=== PATIENT | female | born 1995 | race Caucasian/White ===

== ENCOUNTER → 2018-05-30 | Outpatient (CLI) | payer MEDICAID ==
--- NOTE | 2018-06-01 00:05 | US ---
EXAMINATION TYPE: US thyroid st tissue head/neck DATE OF EXAM: 05/30/2018 COMPARISON: NONE CLINICAL HISTORY: R59.0 Cervical Lymphadenopathy. Pt has palpable lump left posterior neck near base of skull x 1 month/ states it has decreased in size Probable lymph node at area of pt's palpable= 1.1 x 0.4 x 0.7 cm Benign appearing subcentimeter lymph node with retention of fatty hilum is seen at level of palpable abnormality posterior neck images saved. IMPRESSION:As above
== END | disposition home or self-care (01) ==
LOC: RADUSWWP 16:12
PROVIDERS: ATTEND Family Medicine
DX: R59.0 Localized enlarged lymph nodes (principal)
CPT/HCPCS: 76536

== ENCOUNTER → 2018-07-04 | Outpatient (CLI) | payer OTHER ==
--- NOTE | 2018-07-04 15:47 | US ---
EXAMINATION TYPE: US thyroid st tissue head/neck DATE OF EXAM: 07/04/2018 COMPARISON: US CLINICAL HISTORY: L04.9 LYMPHADENITIS. F/U of previous lymph node. Appears similar today, measures 1.0 x 0.5 x 0.9cm IMPRESSION: Stable appearing subcentimeter lymph node presumed benign. No new suspicious adenopathy identified.
== END | disposition home or self-care (01) ==
LOC: RADUSWWP 15:16
PROVIDERS: ATTEND Nurse Practitioner Adult Health
DX: L04.9 Acute lymphadenitis, unspecified (principal)
CPT/HCPCS: 76536

== ENCOUNTER → 2018-08-27 | Outpatient (CLI) | payer MEDICAID, OTHER ==
--- NOTE | 2018-08-28 04:43 | CT ---
EXAMINATION TYPE: CT soft tissue neck w con DATE OF EXAM: 08/27/2018 COMPARISON: Neck Ultrasound 07/04/2018 HISTORY: 23-year-old female Neck swelling and bilateral masses. TECHNIQUE: Contiguous axial scanning of the soft tissues of the neck performed with IV Contrast, luh ent injected with 100ml mL of Isovue M300. Coronal/sagittal reconstructions performed. CT DLP: 544 mGycm Automated exposure control for dose reduction was used. FINDINGS: Visualized intracranial structures and mastoid air cells appear clear. There is some lobulated mucosa l thickening along the floors of the left greater than right maxillary sinuses. Nasopharynx appears clear. Mild hypertrophy of the lingual tonsils. Oropharynx otherwise appears clear. The epiglottis and prevertebral soft tissues appear normal. The glottic and subglottic structures as well as the tracheal column and visualized upper lungs are c lear. Thyroid gland appears normal. Submandibular glands are satisfactory. The parotid glands are mildly atrophic. Borderline sized 5 mm left parotid space lymph node. There are scattered borderline enlarged lymph no tiago throughout the upper neck. -Along the posterior upper cervical region on the left, lymph node measures up to 9 mm short axis. Th ere is an overlying palpable marker. -Station 2 lymph nodes measure up to 9 mm short axis, coronal image 41. -Palpable markers are present on both sides just below the level of the submandibular regions where l ymph nodes measure up to 9 mm, axial image 29 on the right and 7 mm on the left. No suspicious neck masses seen. No osseous destructive process. IMPRESSION: SCATTERED PROMINENT BUT NONENLARGED LYMPH NODES MEASURING UP TO 9 MM. THERE ARE 3 PALPABLE MARKERS VA ESENT, ALONG THE LEFT POSTERIOR UPPER CERVICAL REGION AND BELOW THE BILATERAL SUBMANDIBULAR REGIONS W HERE LYMPH NODES MEASURE UP TO 9 MM SHORT AXIS. NO SUSPICIOUS NECK MASS SEEN. THESE LYMPH NODES ARE N ONSPECIFIC BUT PROBABLY REACTIVE/POST INFLAMMATORY AND CAN BE FOLLOWED CLINICALLY.
== END | disposition home or self-care (01) ==
LOC: RADCTMAIN 16:59
PROVIDERS: ATTEND Otolaryngology
DX: R22.1 Localized swelling, mass and lump, neck (principal)
CPT/HCPCS: 70491; Q9967

== ENCOUNTER → 2018-09-26 | Outpatient (CLI) | payer OTHER ==
--- NOTE | 2018-09-26 08:17 | USB ---
Reason for exam: clinical finding. History: Family history of breast cancer in maternal grandmother. Physical Findings: Nurse Summary: Patient complains of new left breast dimpling lower quadrant x 2 weeks, left greaster than right breast, left upper outer quadrant asymmetrical thickening (nurse mj). US Breast BILAT Right complete breast ultrasound includes all four quadrants, the retroareolar region and axilla. Finding demonstrates no cystic or solid lesion seen. Left complete breast ultrasound includes all four quadrants, the retroareolar region and axilla. Finding demonstrates no cystic or solid lesion seen. No sonographic corrleate to the patient's complaint. These results were verbally communicated with the patient and result sheet given to the patient on 09/26/18. ASSESSMENT: Negative, BI-RAD 1 RECOMMENDATION: Routine screening mammogram of both breasts at age 41. (or sooner if clinically indicated) Manage patient on a clinical basis.
== END | disposition home or self-care (01) ==
LOC: RADUSWWP 07:17
PROVIDERS: ATTEND Obstetrics & Gynecology
DX: N63.0 Unspecified lump in unspecified breast (principal)

== ENCOUNTER → 2018-10-03 | Outpatient (CLI) | payer OTHER ==
[2018-10-03 15:52] VITALS: BP 143/90; PULSE 104; RESP 18; TEMP 98.1
--- NOTE | 2018-10-03 16:30 | P.GSHP ---
History of Present Illness H&P Date: 10/03/18 Chief Complaint: dimple under left nipple Stevenson is a 23-year-old white female who states that since 09/13/2018 she noticed it 2 areas of dimpling in her left breast after showering. Is not noted any lumps or masses. She does have a family history of cancer in the grandmother had breast cancer and her mother had some concerns following a mammogram in her own breast. The patient therefore wants to assure that everything is okay. She had bilateral breast ultrasounds performed on 2018. No cystic or solid lesions of concern were noted. The patient does not have any pain in her breast. She has no nipple discharge or skin changes. The patient does not drink much caffeine, maybe one can of pop a week. The patient doesn't eat chocolate often, the patient does not smoke. She is not exposed to secondhand smoke. The patient does take control pills. The patient states that her breasts feel encouraged and slightly tender prior to her periods. The patient states she first noted the dimpling of week at after her period ended, and she has not had another. Since that time. Family history: 1. maternal grandmother: breast cancer early 40's Hormonal History: menarche: 15 : none, BCP-3 years periods: regular BCP: 3 years Past surgical history: 1. Tonsillectomy Past medical history: Negative Social history: Smoke: negative alcohol: Negative Drugs: Negative - Constitutional Constitutional: Denies chills, Denies fever - EENT Eyes: denies blurred vision, denies pain Ears: deny: decreased hearing, tinnitus Ears, nose, mouth and throat: Denies headache, Denies sore throat - Breasts Breasts: bilateral: as per HPI - Cardiovascular Cardiovascular: Denies chest pain, Denies shortness of breath - Respiratory Comment: asthma Respiratory: Denies cough, Denies 7 - Gastrointestinal Gastrointestinal: Denies abdominal pain, Denies diarrhea, Denies nausea, Denies vomiting - Genitourinary (Female) Genitourinary: Denies dysuria, Denies hematuria - Menstruation Menstruation: Reports period normal - Musculoskeletal Musculoskeletal: Denies myalgias - Integumentary Integumentary: Denies pruritus, Denies rash - Neurological Neurological: Denies numbness, Denies weakness - Psychiatric Psychiatric: Denies anxiety, Denies depression - Hematologic/Lymphatic Comment: none - Allergic/Immunologic Allergic/Immunologic: Reports seasonal allergies Past Medical History Past Medical History: Asthma, GERD/Reflux History of Any Multi-Drug Resistant Organisms: None Reported Past Surgical History: Tonsillectomy Smoking Status: Never smoker - Past Family History Mother Additional Family Medical History / Comment(s): MOTHER ENDOMETRIOSIS. MATERNAL GRANDMOTHER BREAST CANCER EARLY 40'S Medications and Allergies Home Medications Medication Instructions Recorded Confirmed Type Norgestimate-Ethinyl Estradiol 1 each PO HS 10/03/18 10/03/18 History [Ortho Tri-Cyclen 28 Tablet] Allergies Allergy/AdvReac Type Severity Reaction Status Date / Time codeine AdvReac Nausea & Unverified 10/03/18 15:40 Vomiting Surgical - Exam Vital Signs Temp Pulse Resp BP Pulse Ox 98.1 F 104 H 18 143/90 99 10/03/18 15:41 10/03/18 15:41 10/03/18 15:41 10/03/18 15:41 10/03/18 15:41 BMI 31.5 - General well developed, well nourished, no distress - Eyes normal ocular movement - ENT no hearing loss, no congestion - Neck no masses, trachea midline - Respiratory normal respiratory effort, clear to auscultation - Cardiovascular Rhythm: regular - Abdomen Abdomen: soft, non tender, no guarding, no rigid, no rebound - Integumentary Several nevi of concern two on her left upper back near her bra line, and one in her left posterior arm multiple other nevi present - Neurologic no disoriented, no combative - Musculoskeletal normal gait, normal posture - Psychiatric oriented to time, oriented to person, oriented to place, speech is normal, memory intact Breast examination: Right breast: Multi-positional exam no dominant masses or nodules of concern, very dense fibrocystic breast Right axilla: No adenopathy of concern Left breast: Multi-positional exam per dominant masses or nodules of concern, dense fibrocystic breast changes Left axilla: No adenopathy of concern Results Bilateral breast ultrasound from September 2018 reviewed Assessment and Plan Assessment: Impression: 1. Dense fibrocystic breast changes 2. No radiographic or physical exam evidence of malignancy 3. Bilateral breast ultrasound with no radiographic abnormalities 4. Family history of breast cancer 5. Skin nevi of concern two left back and left upper arm Plan: 1. Monthly breast self exam 2. Patient should call immediately if she has is anything of concern 3. Follow with Dr. Jamshid Sanders consultation for nevi on back and left upper arm and would recommend full body check patient understands this CC: Jamshid Sanders, Dr. Weiss
== END | disposition home or self-care (01) ==
LOC: WWCWWP 14:39
PROVIDERS: ATTEND Surgery

== ENCOUNTER → 2018-11-04 | Outpatient (CLI) | payer OTHER ==
--- NOTE | 2018-11-05 09:14 | US ---
EXAMINATION TYPE: US mass soft tissue chest/back DATE OF EXAM: 11/04/2018 COMPARISON: NONE CLINICAL HISTORY: R22.2 Mass Chest Wall. Palpable area patient's sternum No abnormality visualized at the patient's palpable. IMPRESSION: Negative
== END | disposition home or self-care (01) ==
LOC: RADUSWWP 16:18
PROVIDERS: ATTEND Family Medicine
DX: R22.2 Localized swelling, mass and lump, trunk (principal)

== ENCOUNTER → 2018-12-17 | Outpatient (CLI) | payer OTHER ==
--- NOTE | 2018-12-18 10:19 | ECHOF ---
Referral Reason:R07.9 chest pain MEASUREMENTS -------- HEIGHT: 170.2 cm WEIGHT: 90.7 kg BP: IVSd: 0.9 cm (0.6 - 1.1) LVIDd: 5.1 cm (3.9 - 5.3) LVPWd: 1.0 cm (0.6 - 1.1) IVSs: 1.3 cm LVIDs: 3.2 cm LVPWs: 1.5 cm LA Diam: 3.2 cm (2.7 - 3.8) RVIDd: 3.2 cm (< 3.3) Ao Diam: 2.8 cm (2.0 - 3.7) LA Diam: 3.4 cm (2.7 - 3.8) AV Cusp: 2.2 cm (1.5 - 2.6) EPSS: 0.3 cm MV E Abhi: 1.25 m/s MV DecT: 191 ms MV A Abhi: 0.84 m/s MV E/A Ratio: 1.48 RAP: 5.00 mmHg RVSP: 14.05 mmHg MV EF SLOPE: 123.72 mm/s (70 - 150) MV EXCURSION: 1.96 cm (> 18.000) FINDINGS -------- Sinus rhythm. This was a technically adequate study. LV size, wall thickness and systolic function are normal, with an EF greater than 55%. The left bigg tricular size is normal. The right ventricle is normal in size and function. The left atrial size is normal. The right atrial size is normal. Interatrial and interventricular septum intact. The aortic valve is trileaflet, and appears structurally normal. No aortic stenosis or regurgitation. There is trace mitral regurgitation. Trace tricuspid regurgitation present. There is no evidence of pulmonary hypertension. The right ventricular systolic pressure, as measured by Doppler, is 14.05mmHg. There is no pulmonic regurgitation present. The aortic root size is normal. There is no pericardial effusion. CONCLUSIONS -------- 1. Sinus rhythm. 2. This was a technically adequate study. 3. LV size, wall thickness and systolic function are normal, with an EF greater than 55%. 4. The left ventricular size is normal. 5. The right ventricle is normal in size and function. 6. The left atrial size is normal. 7. The right atrial size is normal. 8. Interatrial and interventricular septum intact. 9. The aortic valve is trileaflet, and appears structurally normal. No aortic stenosis or regurgitati on. 10. There is trace mitral regurgitation. 11. Trace tricuspid regurgitation present. 12. There is no evidence of pulmonary hypertension. 13. The right ventricular systolic pressure, as measured by Doppler, is 14.05mmHg. 14. There is no pulmonic regurgitation present. 15. The aortic root size is normal. 16. There is no pericardial effusion. SENIOR HARDWARE DESIGN ENGINEER: Ashlie Choi RDCS
== END | disposition home or self-care (01) ==
LOC: RADECHMAIN 12:58
PROVIDERS: ATTEND Family Medicine
DX: R07.9 Chest pain, unspecified (principal)
CPT/HCPCS: 93306

== ENCOUNTER → 2023-01-04 | Outpatient (CLI) | payer BC ==
--- NOTE | 2023-01-04 08:28 | US ---
EXAMINATION TYPE: US Aorta Screening DATE OF EXAM: 01/04/2023 COMPARISON: Ultrasound abdomen complete August 17, 2015 CLINICAL INDICATION: Female, 27 years old with history of Z82.49 FAM HX ISCHEMIC HEART DISEASE; Fathe r and grandfather have AAA, no symptoms for patient TECHNIQUE: Multiple sonographic images of the abdominal aorta are obtained. FINDINGS: EXAM MEASUREMENTS: Abdominal Aorta: Proximal: 2.1 x 2.3cm Mid: 1.5 x 1.7cm Distal: 1.3 x 1.5cm Bifurcation: Rt = 1.0cm Lt = 0.9cm CHISELER HEAD NOTES: Normal caliper aorta IMPRESSION: No ultrasound evidence for greater than 3.0 cm AAA
== END | disposition home or self-care (01) ==
LOC: RADUSWWP 06:52
PROVIDERS: ATTEND Family Medicine
DX: Z82.49 Family history of ischemic heart disease and other diseases of the circulatory system (principal)
CPT/HCPCS: 76706

== ENCOUNTER → 2024-08-06 | Outpatient (CLI) | payer BC ==
[2024-08-06 13:51] VITALS: BP 143/99; PULSE 112; RESP 18; TEMP 98
--- NOTE | 2024-08-06 14:12 | P.SLEEP ---
History of Present Illness DATE: 08/06/2024 CONSULTATION/NEW PATIENT EVALUATION HISTORY OF PRESENT ILLNESS/SLEEP-WAKE EVALUATION: 29-year-old lady had been evaluated in the sleep center for possible obstructive sleep apnea hypopnea syndrome. SLEEP SCHEDULE: Usually sleep schedule from 10 PM to 6 AM on weekdays and from 11 PM to 8 AM on weekend. FALLING ASLEEP: No problems with falling asleep. DURING SLEEP: Patient snores and occasionally wakes up from sleep with episodes of grinding teeth and heartburn. No history of hypnogogical hallucinations, sleep paralysis, or cataplexy. DURING THE DAY/WAKE STATE: In the morning patient wake up tired, feels sleepiness during the day. [place] sleepiness scale is 13. Patient may take 1 nap at 1 PM on weekends. PAST MEDICAL HISTORY: Hypertension, asthma, headaches, acid reflux. PAST SURGICAL HISTORY: Tonsillectomy. MEDICATIONS: Hydrochlorothiazide, amlodipine, albuterol as needed. SOCIAL HISTORY: Please see below. FAMILY HISTORY: Please see below. REVIEW OF SYSTEMS: Snoring, awakenings from sleep, sleepiness during the day. No fevers. No double vision. No recent chest pain. No shortness of breath. No abdominal pain. No bleeding episodes. No blood in urine. No seizure episodes. PHYSICAL EXAMINATION: GENERAL: A pleasant patient without any distress. VITAL SIGNS: Please see below, weight 249.8 pounds, BMI 39.7. HEENT: PERRLA, EOMI. Evaluation of oropharynx showed tongue protrudes midline, low position of soft palate Mallampati 2, short distance between soft palate and posterior pharyngeal wall. NECK: Supple. No JVD. Thyroid is not palpable. 18 inches in circumference. LUNGS: Clear to percussion and to auscultation. Good air exchange. No wheezing or rhonchi. HEART: S1, S2 regular. No murmurs, gallops or rubs. ABDOMEN: Soft and nontender. Bowel sounds are present. No organomegaly appreciated. EXTREMITIES: No clubbing or cyanosis. PLASMA PROCESSING TECHNICIAN: Awake, alert, and oriented x3. Cranial nerves 2 to 7 intact. There is no fasciculation or atrophy noted. No focal deficits observed. ASSESSMENT: 1. Snoring, episodes of awakenings from sleep, wide neck, sleepiness with [place] Sleepiness Scale 13. Obstructive sleep apnea hypopnea syndrome. 2. Obesity, BMI 39.7. 3. Hypertension. 4. Asthma. 5 headaches. 6 . Acid reflux. 7. Status post tonsillectomy. PLAN: 1. Home sleep apnea test for evaluation of patient's breathing during sleep. 2. Following plan after reading sleep study. 3. Preferable position during sleep on the side. 4. No driving if patient feels any sleepiness. Patient is aware of civil and criminal liability for unsafe driving. 5. Sleep hygiene with regular sleep time for at least 7.5-8 hours. 6. Watching and losing weight. Thank you very much for referring this patient for consultation. Sincerely, Romain Slaughter MD, PhD, FAASM. Diplomat of [place] [employer], Sleep Medicine Board by [place] [employer] [place] [employer] Quality Control Lead of [facility] cc: Berenice Vernon MD Past Medical History Past Medical History: Asthma, GERD/Reflux, Hypertension Additional Past Medical History / Comment(s): Headaches, History of Any Multi-Drug Resistant Organisms: None Reported Past Surgical History: Tonsillectomy Past Psychological History: No Psychological Hx Reported Smoking Status: Never smoker Past Alcohol Use History: Occasional Past Drug Use History: None Reported - Past Family History Mother Additional Family Medical History / Comment(s): MOTHER ENDOMETRIOSIS,ANEMIA. MATERNAL GRANDMOTHER BREAST CANCER EARLY 40'S Father Family Medical History: Diabetes Mellitus, Hyperlipidemia, Hypertension Additional Family Medical History / Comment(s): AORTIC ANEURYSM - JUST HAD SURGERY, Medications and Allergies Home Medications Medication Instructions Recorded Confirmed Type Norgestimate-Ethinyl Estradiol 1 each PO HS 10/03/18 10/03/18 History [Ortho Tri-Cyclen 28 Tablet] Allergies Allergy/AdvReac Type Severity Reaction Status Date / Time codeine AdvReac Nausea & Unverified 10/03/18 15:40 Vomiting Physical Exam Vitals: Vital Signs Temp Pulse Resp BP Pulse Ox 08/06/24 13:51 98.0 F 112 H 18 143/99 96 Intake and Output 08/05/24 08/06/24 08/06/24 22:59 06:59 14:59 Other: Weight 113.171 kg Sleep Note - Sleep Data ESS Total: 13 - Sleep Note Sleep Note: Temperature: 98.0 F Pulse Rate: 112 Respiratory Rate: 18 Blood Pressure: 143/99 SpO2: 96 Height: 5 ft 6.5 in Weight: 113.171 kg BMI: Neck Circumference: 18
== END ==
LOC: 3 N SLEEP 13:24
PROVIDERS: ATTEND Internal Medicine
DX: G47.33 Obstructive sleep apnea (adult) (pediatric) (principal); E66.9 Obesity, unspecified; I10 Essential (primary) hypertension; J45.909 Unspecified asthma, uncomplicated; R51.9 Headache, unspecified; K21.9 Gastro-esophageal reflux disease without esophagitis; Z98.890 Other specified postprocedural states; Z90.89 Acquired absence of other organs; Z68.39 Body mass index [BMI] 39.0-39.9, adult; Z88.5 Allergy status to narcotic agent
CPT/HCPCS: 99211

== ENCOUNTER → 2024-09-02 | Outpatient (CLI) | payer BC ==
--- NOTE | 2024-09-03 12:33 | P.PCN ---
Description of Procedure: CLINICAL: A home sleep apnea test has been done for confirmation of possible obstructive sleep apnea-hypopnea syndrome. DESCRIPTION OF PROCEDURE: RESULTS: Recording time was 7 hours 22 minutes. Evaluation time was 6 hours 58 minutes. Evaluation time is sufficient for making conclusion about results of the test. Raw data of sleep recording has been reviewed and is adequate. Respiratory channel showed 7 apneas and 24 hypopneas. Apnea-hypopnea index was 4.4 per hour. Pulse rate in the range between minimum 71, maximum 110, average 83 by computer calculation. Lowest desaturation was 88%. IMPRESSION: 1. No significant respiratory abnormalities have been documented during the sleep study, normal oxygenation during sleep. 2. Patient presents with symptoms of excessive daytime sleepiness with [place] Sleepiness Scale increased to 13. Please see other impressions from consultation. PLAN: 1. I will see patient for follow-up visit to explain results of the test and following plan. We may consider multiple sleep latency test. 2. Sleep hygiene with regular time in bed for at least 8 hours. 3. Watching and losing weight. 4. No driving if feeling any sleepiness. Thank you very much for allowing me to participate in the management of your patient. Sincerely, Romain Slaughter MD, PhD, FAASM Diplomat of [place] [employer] Sleep Medicine Board of [place] [employer] Shipping And Receiving Assistant of [facility] [place] cc: Berenice Vernon MD
== END ==
LOC: 3 N SLEEP 16:49
PROVIDERS: ATTEND Internal Medicine
DX: R40.0 Somnolence (principal); Z88.5 Allergy status to narcotic agent

== ENCOUNTER → 2024-10-22 | Outpatient (CLI) | payer BC ==
[2024-10-22 11:29] VITALS: BP 136/88; PULSE 104; RESP 16; TEMP 97.9
--- NOTE | 2024-10-22 11:49 | P.PROGSL ---
Subjective DATE: 10/22/2024 FOLLOW UP VISIT. Patient returned to sleep center for follow-up visit to discuss results of sleep study and following plan. I discussed results of home sleep apnea test with patient in details. Apnea hypopnea index 4.4 times per hour, which is in normal range, but patient did not sleep well during home sleep apnea test, which may underestimate severity of respiratory abnormalities during test. Patient continued to feel significant sleepiness during the day. [place] Sleepiness Scale today increased to 15 and patient is ready for naps, looks sleepy during follow-up visit. MEDICATIONS: Have been reviewed, please see below During physical exam: GENERAL: A pleasant patient without any distress. VITAL SIGNS: Please see below. HEENT: EUGENIORLA, EOMI. NECK: Supple. No JVD. LUNGS: Clear to percussion and to auscultation. Good air exchange. No wheezing or rhonchi. HEART: S1, S2 regular. ABDOMEN: Soft and nontender. EXTREMITIES: No clubbing or cyanosis. PAPER PRODUCTS PRINTER: Awake, alert, and oriented x3. No focal deficit. Impressions: 1. No significant respiratory abnormalities by results of home sleep apnea test, which may underestimate severity of respiratory abnormalities, because patient did not sleep well during the test. 2. Patient continued to feel sleepiness during the day with high [place] Sleepiness Scale of 15 today which dictate necessity to differentiate with narcolepsy type II and idiopathic hypersomnia. 3. Obesity, BMI in the range of 39.7. 4. Hypertension. 5. Asthma. 6. Headaches. 7. Acid reflux. 8. Status post tonsillectomy. Plan: 1. Polysomnogram for evaluation patient breathing during the sleep with following multiple sleep latency test, if polysomnogram will be negative for obstructive sleep apnea hypopnea syndrome 2. Sleep hygiene with regular time in bed for at least 8 hours. 3. Losing weight 4. Precautions related to driving. No driving if feel any sleepiness. Patient is aware about civil and criminal liability for unsafe driving, promised to follow recommendations. 5. Following plan after reading sleep study. Thank you very much for allowing me to participate in the management of your patient. Romain Slaughter MD, PhD, FAASM. Diplomat of [place] [employer], Sleep Medicine Board by [place] [employer] Creative Designer of [facility] cc: Savanah Villareal [facility] Objective - Vital Signs Vital Signs: Vital Signs Temp 97.9 F 10/22/24 11:27 Pulse 104 H 10/22/24 11:27 Resp 16 10/22/24 11:27 BP 136/88 10/22/24 11:27 Pulse Ox 97 10/22/24 11:27 FiO2 Intake & Output 10/21/24 10/22/24 10/22/24 18:59 06:59 18:59 Weight 112.945 kg Home Medications: Home Medications Medication Instructions Recorded Confirmed Type amLODIPine 10 mg PO DAILY 10/22/24 10/22/24 History hydroCHLOROthiazide 12.5 mg PO DAILY 10/22/24 10/22/24 History
== END ==
LOC: 3 N SLEEP 11:20
PROVIDERS: ATTEND Internal Medicine
DX: E66.9 Obesity, unspecified (principal); I10 Essential (primary) hypertension; J45.909 Unspecified asthma, uncomplicated; K21.9 Gastro-esophageal reflux disease without esophagitis; Z68.39 Body mass index [BMI] 39.0-39.9, adult; Z90.89 Acquired absence of other organs; Z88.5 Allergy status to narcotic agent
CPT/HCPCS: 99212

== ENCOUNTER → 2024-11-03 | Outpatient (CLI) | payer BC ==
--- NOTE | 2024-11-04 07:51 | US ---
EXAMINATION TYPE: US kidneys/renal and bladder DATE OF EXAM: 11/03/2024 COMPARISON: NONE CLINICAL INDICATION: Female, 29 years old with history of I10 ESSENTIAL (PRIMARY) HYPERTENSION; TECHNIQUE: Grayscale imaging of the bilateral kidneys and urinary bladder: FINDINGS: EXAM MEASUREMENTS: Right Kidney: 10.6 x 5.7 x 5.9 cm Left Kidney: 12.5 x 5.9 x 5.6 cm Suboptimal due to overlying bowel gas Right Kidney: No hydronephrosis or masses seen Left Kidney: No hydronephrosis or masses seen Bladder: Anechoic Bilateral Jets seen There is no evidence for hydronephrosis at this point in time. No nephrolithiasis is seen. No skye s are identified. The urinary bladder is anechoic. IMPRESSION: No evidence for obstructive uropathy or renal calculus. [facility] Viola Hendricks, , 11/04/2024 7:48 AM
== END | disposition home or self-care (01) ==
LOC: RADUSWWP 15:34
PROVIDERS: ATTEND Family Medicine
DX: I10 Essential (primary) hypertension (principal)
CPT/HCPCS: 76770

== ENCOUNTER 2024-12-13 19:45 | Outpatient (CLI) | payer BC ==
[2024-12-14 20:46] LABS: Urine Alcohol Negative (Negative); Urine Barbiturate Negative (Negative); Urine Cocaine Negative (Negative); Urine Methadone Negative (Negative); Urine Opiates Negative (Negative); Urine Phencyclidine Negative (Negative)
--- NOTE | 2024-12-16 12:27 | P.PCN ---
Description of Procedure: POLYSOMNOGRAPHY AND MSLT REPORT PROCEDURE(S)/DATE(S): Polysomnography 12/13/2024, multiple sleep latency test 12/14/2024. CLINICAL: Patient has been seen in the sleep center for evaluation of obstructive sleep apnea-hypopnea syndrome. Please see my consultation. Sleep study has been done for evaluation of patient breathing during the sleep. PROCEDURE: The standard montage for clinical polysomnography included the electroencephalogram, the electrooculogram, the mentalis surface kiya ctromyography and Lead II cardiography. The respiratory battery consisted of measurements of nasal/buccal air flow, pressure transducer measurements from nose, thoracic and/or abdominal effort and intercostal surface electromyography. Video monitoring has been done to check for any parasomnia events. Nocturnal oxyhemoglobin saturations were obtained by finger oximetry. Step-carlisle titration with positive airway pressure was utilized to control the respiratory events, if necessary. RESULTS: During the diagnostic sleep study sleep efficiency was close to normal 85.6%. Latency to sleep onset was normal 25.0 min. Sleep architecture showed stage NI was short 0.4%, Delta sleep was normal 21.2%, REM sleep was borderline high 29.8%. Respiratory channel showed 1 obstructive apneas, 0 mixed apneas, 0 central apneas, 1 hypopneas with lowest oxygen level 91%. Total apnea hypopnea index was 0.3. Heart rate was in the range between 69 and 80, average 74. EMG showed 0 periodic limb movements per hour. Multiple sleep latency test have been done on the following day, consisted from 5 naps. Patient fell asleep on all naps with pathologically short sleep latency 4.6 minutes. No sleep onset REM periods have been documented. IMPRESSIONS: 1. No significant respiratory abnormalities, normal oxygenation during sleep. 2. No significant periodic limb movements have been documented. 3. Multiple sleep latency test confirmed pathological sleepiness. Differential diagnosis include narcolepsy and idiopathic hypersomnia. Please see other impressions from consultation PLAN: 1. I will see patient for follow-up visit to discuss results of the test and following plan. 2. Losing weight program. 3. Sleep hygiene with regular time in bed for at least 7-1/2 hours. 4. No driving if feeling sleepiness. Thank you very much for allowing me to participate in the management of your patient. Sincerely, Romain Slaughter MD, PhD, FAASM. Diplomat of [employer] [place] [employer], Sleep Medicine Board by [employer] [facility] [place] cc: Berenice Vernon MD
== END 2024-12-14 17:27 | disposition home or self-care (01) ==
LOC: 3 N SLEEP 19:45
PROVIDERS: ATTEND Internal Medicine
DX: G47.33 Obstructive sleep apnea (adult) (pediatric) (principal); Z88.5 Allergy status to narcotic agent
CPT/HCPCS: 80306; 95805; 95810

== ENCOUNTER → 2024-12-28 | Outpatient (CLI) | payer BC ==
[2024-12-28 16:34] VITALS: BP 137/90; PULSE 96; RESP 16; TEMP 98
--- NOTE | 2024-12-28 17:58 | P.PROGSL ---
Subjective DATE: 12/28/2024 FOLLOW UP VISIT. Patient returned to sleep center for follow-up visit discussed results of sleep studies and following plan. I discussed results of polysomnogram and multiple sleep latency test with patient in details. During polysomnogram no significant respiratory abnormalities sleep no significant periodic limb movements have been documented. Multiple sleep latency test confirmed pathological sleepiness with mean sleep latency 4.6 minutes following 5 naps. No sleep onset REM periods have been documented. Patient continued to feel sleepiness during the day. [place] sleepiness scale is significantly increased to 13 today. MEDICATIONS: Please see below During physical exam: GENERAL: A pleasant patient without any distress. VITAL SIGNS: See below. HEENT: PERRLA, EOMI. NECK: Supple. No JVD. LUNGS: Clear to percussion and to auscultation. Good air exchange. No wheezing or rhonchi. HEART: S1, S2 regular. ABDOMEN: Soft and nontender. EXTREMITIES: No clubbing or cyanosis. BEEF BONER: Awake, alert, and oriented x3. No focal deficit. Impressions: 1. Pathological sleepiness with mean sleep latency 4.6 minutes have been confirmed by multiple sleep latency test. No sleep onset REM. Have been documented. Differential diagnosis include narcolepsy type II and idiopathic hypersomnia. 2. Hypertension. 3. Obesity. 4. Asthma. 5. Headaches. 6. Acid reflux. 7. Status post tonsillectomy. Plan: 1. Patient will start treatment with lowest doses of Ritalin 5 mg first thing in the morning and second dose around 1 PM. 2. Sleep hygiene with regular time in bed for at least 8 hours. 3. Daytime naps permitted 4. Precautions related to driving. No driving if feel any sleepiness. Patient is aware about civil and criminal liability for unsafe driving, promised to follow recommendations. 5. Follow up visit in 1 months or earlier if patient has any problems. Thank you very much for allowing me to participate in the management of your patient. Romain Slaughter MD, PhD, FAASM. Diplomat of [place] [employer], Sleep Medicine Board by [employer] Deputy Sheriff/Investigator of [facility] [place] cc: Berenice Vernon MD Objective - Vital Signs Vital Signs: Vital Signs Temp 98 F 12/28/24 16:34 Pulse 96 12/28/24 16:34 Resp 16 12/28/24 16:34 BP 137/90 12/28/24 16:34 Pulse Ox 97 12/28/24 16:34 FiO2 Intake & Output 12/27/24 12/28/24 12/28/24 18:59 06:59 18:59 Weight 112.037 kg Home Medications: Home Medications Medication Instructions Recorded Confirmed Type amLODIPine 10 mg PO DAILY 10/22/24 12/28/24 History hydroCHLOROthiazide 12.5 mg PO DAILY 10/22/24 12/28/24 History
== END ==
LOC: 3 N SLEEP 16:27
PROVIDERS: ATTEND Internal Medicine
DX: G47.419 Narcolepsy without cataplexy (principal); G47.10 Hypersomnia, unspecified; I10 Essential (primary) hypertension; E66.9 Obesity, unspecified; J45.909 Unspecified asthma, uncomplicated; R51.9 Headache, unspecified; K21.9 Gastro-esophageal reflux disease without esophagitis; Z98.890 Other specified postprocedural states; Z88.5 Allergy status to narcotic agent
CPT/HCPCS: 99212

== ENCOUNTER → 2025-01-06 | Outpatient (CLI) | payer BC | END | disposition home or self-care (01) | LOC: LABWHC1 08:57 | PROVIDERS: ATTEND Internal Medicine Clinical Cardiac Electrophysiology | DX: I15.9 Secondary hypertension, unspecified (principal) | CPT/HCPCS: 36415; 82088; 83835; 84244 ==

== ENCOUNTER → 2025-01-27 | Outpatient (CLI) | payer BC ==
--- NOTE | 2025-01-27 16:50 | US ---
EXAMINATION TYPE: US renal artery duplex complet DATE OF EXAM: 01/27/2025 COMPARISON: Renal US 11/03/2024 CLINICAL INDICATION: Female, 30 years old with history of I10 ESSENTIAL (PRIMARY) HYPERTENSION; HTN, medications intermittently helping x 6 months TECHNIQUE: Grayscale, color Doppler and spectral Doppler imaging of the bilateral renal arteries and kidneys. FINDINGS: MEASUREMENTS: RENAL SIZE: Right Kidney: 13.0 x 5.3 x 6.0 cm Left Kidney: 13.6 x 5.6 x 5.9 cm Right Kidney: wnl Left Kidney: wnl Abd Aorta: wnl RESISTANCE INDEX Right: 0.63 Left: 0.61 RA/AO RATIO (< 3.5 ) Right: 0.96 Left: 1.09 RENAL ARTERY VELOCITY ( < 180 cm/s) Right: 90 Left: 101 Field Project Manager Notes: Limited exam due to patient body habitus, unable to identify proximal or mid bila teral renal arteries. Appropriate color Doppler flow and spectral waveforms to the kidneys bilaterally. Grayscale imaging of the kidneys and show no evidence for hydronephrosis or mass. No renal calculi or cysts visualized. IMPRESSION: No ultrasound evidence for renal artery stenosis. [facility], , 01/27/2025 4:48 PM
== END | disposition home or self-care (01) ==
LOC: RADUSWWP 08:56
PROVIDERS: ATTEND Internal Medicine Clinical Cardiac Electrophysiology
DX: I10 Essential (primary) hypertension (principal); I70.1 Atherosclerosis of renal artery
CPT/HCPCS: 93975